=== PATIENT | male | born 1995 | race Two or more races ===

== ENCOUNTER → 2024-08-25 | Outpatient (CLI) | payer MEDICAID, SELFPAY ==
--- NOTE | 2024-08-25 | XR_ITS ---
Examination: Upper GI series with small bowel follow-through KUB Esophagram standard Fluoroscopy 23 spot fluoroscopic films of the esophagus and stomach, abdomen AP supine 6 views Exam date and time: August 25, 2024 0955 hours INDICATIONS: Abdominal pain beginning 4 years ago TECHNIQUE AND FINDINGS: [employer] AP supine abdomen single view Patient swallowed thin barium with 23 spot films obtained of the esophagus stomach duodenum Primary peristaltic esophageal waves noted Mild intermittent gastroesophageal reflux No constricting esophageal lesion Peristalsis traverses the stomach normally No gastric mass deformity or ulceration Spasm and inability involving the duodenal bulb, no duodenal bulb ulcer crater Normal small bowel loops with contrast in the colon at 55 minutes IMPRESSION: Mild intermittent gastroesophageal reflux No gastric mass deformity or ulceration Active peptic disease duodenum bulb
== END | disposition home or self-care (01) ==
LOC: CDIM 09:04
PROVIDERS: Referring Provider Internal Medicine Gastroenterology; Visit Provider Internal Medicine Gastroenterology
DX: K21.9 Gastro-esophageal reflux disease without esophagitis (principal); K30 Functional dyspepsia
CPT/HCPCS: 74240; 74248; A4699; A9270

== ENCOUNTER → 2025-03-10 | Outpatient (CLI) | payer MEDICAID, SELFPAY ==
--- NOTE | 2025-03-10 09:30 | XR_ITS ---
Examination: Abdomen sonogram, complete Date and time of exam: February, 0919 hours INDICATIONS: Heartburn right upper abdominal pain after eating beginning 1 year ago. Technique: Multiple real-time grayscale transabdominal sonographic images of the abdomen have been obtained. Findings: Normal gallbladder. Normal common bile duct 0.2 cm Pancreatic head 1.5 cm Aorta not enlarged. Liver 17.0 cm no focal liver lesions Normal hepatopetal portal venous flow Patent IVC Right kidney 10.3 cm renal cortex 1.6 cm Left kidney 10.1 cm renal cortex 2.5 cm No hydronephrosis Spleen 11.1 cm IMPRESSION: Mild hepatomegaly Normal gallbladder
== END | disposition home or self-care (01) ==
PROVIDERS: PCP Family Medicine; Referring Provider Physician Assistant; Visit Provider Physician Assistant
DX: R16.0 Hepatomegaly, not elsewhere classified (principal)
CPT/HCPCS: 76700